=== PATIENT | female | born 1970 | race Caucasian/White ===

== ENCOUNTER 2024-01-09 07:57 | Day surgery (SDC) | payer OTHER, SELFPAY ==
[2024-01-01 10:23] VITALS: BMI 50.9
[2024-01-01 10:50] LABS: % Basophils 0.4 % (0-2); % Eosinophils 0.9 % (0-6); % Immature Granulocytes 0.4 % (0-0.5); % Lymphocytes 30.5 % (20.5-51.1); % Monocytes 4.9 % (1.7-9.3); % Neutrophils 62.9 % (42.2-75.2); Absolute Eosinophils 0.1 10^3/uL (0-0.7); Absolute Lymphocytes 2.3 10^3/uL (1.2-3.4); Absolute Monocytes 0.4 10^3/uL (0.1-0.6); Absolute Neutrophils 4.8 10^3/uL (1.4-6.5); Hematocrit 40.9 % (37.0-47.0); Mean Corp Hgb Conc. 34.2 g/dL (33.0-37.0); Mean Corpuscular Hgb 29.5 pg (27.0-31.0); Mean Corpuscular Volume 86.3 fL (81.0-99.0); Mean Platelet Volume 9.8 fL (7.4-10.4); Nucleated Red Blood Cells % 0 %; Platelet Count 372 10^3/uL (130-400); Red Blood Cell Count 4.74 10^6/uL (4.20-5.40); Red Cell Dist. Width 12.3 % (11.5-14.5); White Blood Cell Count 7.7 10^3/uL (4.8-10.8)
[2024-01-01 11:01] LABS: ALT (SGPT) 25 U/L (0-35); AST (SGOT) 20 U/L (14-36); Albumin 4.6 g/dl (3.5-5.0); Alkaline Phosphatase 108 U/L (38-126); Blood Urea Nitrogen 16 mg/dl (7-17); Calcium 9.7 mg/dl (8.4-10.2); Carbon Dioxide 27 mmol/L (22-30); Chloride 103 mmol/L (98-107); Estimated Creatinine Clearance 122 ml/min; Glucose 106 mg/dl (70-99); Magnesium 2.2 mg/dl (1.6-2.3); Potassium 4.6 mmol/L (3.5-5.1); Sodium 140 mmol/L (135-145); Total Bilirubin 0.9 mg/dl (0.2-1.3); Total Protein 7.1 g/dl (6.3-8.2); eGFR > 60.00
[2024-01-01 11:27] LABS: INR 1.07; PT 13.7 Sec (11.4-14.6)
[2024-01-09] VITALS (23 sets, daily range): BP systolic 98–122; BP diastolic 60–77; BMI 50.9
[2024-01-09 12:20] LABS: ACT-LR - POC 277 Seconds (116-155)
[2024-01-09 12:43] LABS: ACT-LR - POC 289 Seconds (116-155)
--- NOTE | 2024-01-09 14:08 | ITS.CL.ABL ---
Physical Medicine Teacher - Ablation
Ablation
Procedure Report:
ELECTROPHYSIOLOGY ABLATION STUDY
�
DATE:: January 09, 2024�����������������������������REFERRING: Dr. Silas Daigle
�
INDICATION: Persistent supraventricular tachycardia in the form of atrial fibrillation.� Prior pulmonary vein isolation with a 20 mm cryoballoon in 2019
�
HISTORY: See H and P.��As above
�
ANTIARRHYTHMIC DRUG: Amiodarone
�
PRE-PROCEDURE JULIÁN: No atrial thrombus
�
PRESENTING RHYTHM: A-fib
�
'TIME-OUT':��called and confirmed.
�
SEDATION/ANESTHESIA:��provided via the anesthesia department using general anesthesia (LMA).
�
INTRAVENOUS/ARTERIAL ACCESS:
Right femoral venous - 8Fr
Left femoral venous -9 Hungarian
The right pulmonary vein we utilized a [id number] stitch and a Vascade suture closure was utilized for the 9 Hungarian sheath in the left femoral vein.
Ultrasound guidance for bilateral femoral vein access was utilized by me to obtain access with demonstration of normal anatomy
CHADS-VASC Score:
�
HAS-Bled Score
�
PROCEDURE:
1.��A decapolar CS catheter was placed within the CS for mapping and pacing.��This was also used as the reference catheter for the 3-D map.
�
2. The intracardiac ultrasound catheter was positioned in the RA to identify the FO for targeting of transseptal puncture, assist��in identification of the pulmonary vein ostia, monitoring pre and post ablation pulmonary vein flow velocities,
monitoring for 'bubble' formation during RF application as a sign of thermal injury,��and to monitor for pericardial effusion during mapping and ablation procedure.���Left atrial size, LV ejection fraction, and pulmonary vein flows were monitored
pre and post ablation procedure. The other valves were inspected and found to be free of significant regurgitation or stenosis.
�
3.��Half of the calculated heparin bolus was administered prior to the first transeptal puncture.��Transseptal puncture was performed to diagnose RA and LA pressure so that safety of LA mapping and ablation could be further assessed, and to access
the left atrium and pulmonary veins for mapping and ablation.��This entailed advancing an 14 Hungarian Contour with dilator and needle apparatus into the superior vena cava and withdrawing both (monitoring intracardiac ultrasound, fluoroscopy and tip
pressure) with the tip oriented toward the atrial septum.��The fossa ovalis was engaged (indicated by sudden displacement of the sheath tip as well as tenting of the fossa seen on intracardiac ultrasound).��Left atrial access required a pass with
the Brockenbrough needle extended.��Left atrial catheter position was confirmed by pressure monitoring (RA mean pressure 8 mm Hg and LA mean presure 14 mm Hg), LA saturation (99%),��as well as fluoroscopy.��The sheath was advanced over the dilator
and positioned in the left atrium.���The remainder of the calculated heparin bolus was administered and heparin was
infused to maintain ACT at 300 -350 seconds throughout the case.
�
4.��RA pacing was performed via the proximal decapolar poles and LA pacing was performed via the distal decapolr poles.
�
5. A quadrapolar catheter was first positioned at the His position for His Bundle recording which was tagged via the 3-D Navex sytem, and then passed to the RVA for RV pacing and recording.
�
6. The multipolar catheter and the PFA catheter were placed in each of the LIPV, LSPV, RSPV and the RIPV.��
�
7.��Next, a 3-D map was created using Navex.���A 3-D reconstructed CT image was compared to the 3-D Navex map to assist in anatomic interpretation, mapping and ablation.��The CT image and the NavX image were fused.
�
8. 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 The right superior, right inferior and lesser pulmonary veins were isolated at baseline and antral fashion. The patient was in atrial
fibrillation during mapping. A total of 82 lesions were given to the pulmonary veins with particular attention to the posterior aspect of the left inferior pulmonary vein as well as isolation of the left atrial posterior wall from roof to floor
with entrance block achieved in all 4 pulmonary veins and the left atrial posterior wall. Upon withdrawal of the PFA catheter the distal tip was somewhat deformed and the sheath and ablation catheter removed back to the right atrium under direct
fluoroscopic guidance and withdrawn from the body under direct fluoroscopic guidance without incident. The patient received 1 300 J synchronized biphasic shock which restored sinus rhythm and there was no other nonpulmonary vein triggers for atrial
fibrillation noted.
�
9. The ICD therapies were turned off for the initial part of the procedure and back on at the end of procedure. Programming was AAI�DDD 50 to 130 bpm and VF zone at 200 bpm with a monitor from 150 to 199 bpm.
�
TOTAL FLOURO TIME: 16.7 minutes 493 mGy
�
TOTAL RF DURATION: 0 minutes
�
REVERSAL OF HEPARIN: 50 mg of protamine, slow IV administration
�
COMPLICATIONS:
None
Intracardiac US shows no pericardial effusion post ablation.
�
SUMMARY:��
Complex left atrial mapping and ablation.
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 Reisolation of left inferior pulmonary vein and the left atrial posterior wall with PFA with a total of 82 lesions noted.
�
RECOMMENDATIONS:
1. Admit to monitored bed.
2. Resume anticoagulation
3.� Out of bed 4 hours. Counseled patient on weight loss and sleep apnea therapy. Could consider outpatient therapy with Wegovy or Ozempic.
4.� Amiodarone 100 mg daily x 3 months then discontinue
�
Copy to: Dr. Silas Daigle
�
--- NOTE | 2024-01-09 15:19 | PTCARENOTE ---
Addendum entered by Deanna Norman RN 01/09/24 15:23:
NSR is noted on the monitor.
Original Note:
Received the patient from the label fuser tender in her bed. The patient is aaox3, vital signs are stable, 99% on 2L. Her BL groin site dressings are c/d/i. Both sites are soft with positive pedal pulses noted BL. She has no complaints of pain. I oriented her
to her room. I instructed her on her activity restrictions and expected oob time. Her call nelson is within reach.
--- NOTE | 2024-01-09 16:09 | CM ---
Chart reviewed. Patient is independent of ADLS, lives with her significant other in a 1 [address], ramp access, 0 DME. Gave patient Advance Directive. Plan is for the patient to return home. CM to follow
--- NOTE | 2024-01-09 18:00 | PTCARENOTE ---
I removed the patient's suture from her right groin at 1700. At 1730, the dressing was c/d/i and I attempted to sit the patient up in her bed. Immediately upon sitting up, her right groin dressing was saturated and blood began to leak all over her
groin area. I laid her bank down in her bed and applied pressure to her groin for 20 minutes. I cleaned her up afterward, applied a hemostasis pad, a 4x4 folded gauze, and a Tegaderm dressing to her right groin. I instructed the patient to remain
flat in her bed for another hour. Will hold off giving her her 1800 Xarelto until hemostasis is established.
[2024-01-09] MEDS: LASIX 20 MG PO (19:47)
[2024-01-09] MEDS: TOPROL XL 100 MG PO (19:47)
[2024-01-09] MEDS: ZESTRIL 10 MG PO (19:47)
--- NOTE | 2024-01-09 20:34 | PTCARENOTE ---
Received patient at change of shift. Patient awake, alert, and oriented in bed. Patient remaining on bed rest due to bleeding when sitting up with day shift RN. Both groin site clean, dry, and intact; soft, no hematoma. Significant other at bedside.
BP 99/71, HR 67, 93% on room air. Discussed gradually increases HOB to reduce bleeding risk with patient. Patient verbalized understanding. Call nelson within reach.
[2024-01-09] MEDS: XARELTO 20 MG PO (22:10)
[2024-01-09] MEDS: BUSPAR 10 MG PO (22:11)
[2024-01-10 03:21] VITALS: BP 93/61
[2024-01-10 03:22] VITALS: BP 93/61
[2024-01-10 03:43] LABS: Hematocrit 34.7 % (37.0-47.0); Hemoglobin 12.2 g/dL (12.0-16.0); Mean Corp Hgb Conc. 35.2 g/dL (33.0-37.0); Mean Corpuscular Hgb 29.5 pg (27.0-31.0); Mean Corpuscular Volume 83.8 fL (81.0-99.0); Mean Platelet Volume 9.5 fL (7.4-10.4); Platelet Count 296 10^3/uL (130-400); Red Blood Cell Count 4.14 10^6/uL (4.20-5.40); Red Cell Dist. Width 12.3 % (11.5-14.5); White Blood Cell Count 12.5 10^3/uL (4.8-10.8)
--- NOTE | 2024-01-10 03:55 | PTCARENOTE ---
Right and left groin sites clean, dry, and intact. Soft, no hematoma. Patient is off bedrest and has ambulated to the bathroom two times. Patient is steady on feet and feels good moving. Vital signs are stable. Discussed calling RN with any pain or
discomfort. Call nelson within reach.
[2024-01-10 04:07] LABS: Blood Urea Nitrogen 22 mg/dl (7-17); Calcium 9.1 mg/dl (8.4-10.2); Carbon Dioxide 22 mmol/L (22-30); Chloride 104 mmol/L (98-107); Estimated Creatinine Clearance 109 ml/min; Glucose 153 mg/dl (70-99); Potassium 4.5 mmol/L (3.5-5.1); Sodium 139 mmol/L (135-145); eGFR > 60.00
[2024-01-10 07:48] VITALS: BP 102/65
[2024-01-10] MEDS: ALDACTONE 25 MG PO (08:14)
[2024-01-10] MEDS: PACERONE 100 MG PO (08:14)
[2024-01-10] MEDS: ZESTRIL 10 MG PO (08:14)
[2024-01-10] MEDS: NORVASC 10 MG PO (08:14)
[2024-01-10] MEDS: LASIX 20 MG PO (08:15)
[2024-01-10] MEDS: TOPROL XL 100 MG PO (08:15)
--- NOTE | 2024-01-10 08:57 | PTCARENOTE ---
Assumed care of pt from night RN. Pt received awake and alert, Ox3. VSs, CM shows NSR 60's, POX 96% on RA. Bilateral groins remain CDI with normal CMS. Pt denies any pain or discomfort at this time.
--- NOTE | 2024-01-10 09:37 | W.PN.CARDCBS ---
Addendum entered and electronically signed by Kalyan Colin MD 01/10/24 13:40:
Patient seen and examined
Agree with RABBIT DRESSER note and assessment
Agree with RABBIT DRESSER plan
Examination:
Right groin is clean dry and intact
Hemoglobin is noted
Cors regular without murmur
Telemetry demonstrates sinus rhythm
Remainder of examination per RABBIT DRESSER note
Impression:
Symptomatic Afib prior PVI 2019
post redo PVI 01/09/24
VT arrest 2018 post ICD
AMIE/CPAP
HTN
Benign Meningioma excision 2019
Anxiety
Morbid obesity BMI 50
SUMMARY:��
Complex left atrial mapping and ablation.
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 Reisolation of left inferior pulmonary vein and the left atrial posterior wall with PFA with a total of 82 lesions noted.
Plan:
post ablation feels good
groins stable
tele SR no ectopy
continue OAC Xarelto
Decrease Amiodarone to 100mg daily for 3 mo, then stop
Activity restrictions reviewed
reinforced compliance with CPAP and wt loss plan to start GLP1
Activity restrictions reviewed
f/u Dr. Daigle 3 mo
home today
Original Note:
Today's Communication / Plan
-
stable for d/c home
Impression / Plan
-
PCP: Dr. Buchanan
CDY: Dr. Daigle
Impression:
Symptomatic Afib prior PVI 2019
post redo PVI 01/09/24
VT arrest 2018 post ICD
AMIE/CPAP
HTN
Benign Meningioma excision 2019
Anxiety
Morbid obesity BMI 50
SUMMARY:��
Complex left atrial mapping and ablation.
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 Reisolation of left inferior pulmonary vein and the left atrial posterior wall with PFA with a total of 82 lesions noted.
Plan:
post ablation feels good
groins stable
tele SR no ectopy
continue OAC Xarelto
Decrease Amiodarone to 100mg daily for 3 mo, then stop
Activity restrictions reviewed
reinforced compliance with CPAP and wt loss plan to start GLP1
Activity restrictions reviewed
f/u Dr. Daigle 3 mo
home today
�
Progress Note - Manufacturing Software Engineer
Subjective
Date of Service: January 10, 2024
denies cp, sob
Objective
Labs:
01/10/24 03:31
01/10/24 03:31
Labs
Hgb 12.2 g/dL (12.0-16.0) 01/10/24 03:31
Hct 34.7 % (37.0-47.0) L 01/10/24 03:31
Plt Count 296 10^3/uL (130-400) 01/10/24 03:31
PT 13.7 Sec (11.4-14.6) 01/01/24 10:35
INR 1.07 01/01/24 10:35
Sodium 139 mmol/L (135-145) 01/10/24 03:31
Potassium 4.5 mmol/L (3.5-5.1) 01/10/24 03:31
BUN 22 mg/dl (7-17) H 01/10/24 03:31
Creatinine 0.9 mg/dL (0.6-1.0) 01/10/24 03:31
Glucose 153 mg/dl (70-99) H 01/10/24 03:31
Vital Signs and I&O:
Vital Signs
Temp Pulse Resp BP Pulse Ox
97.7 F 70 18 102/65 96
01/10/24 07:50 01/10/24 08:00 01/10/24 07:50 01/10/24 07:48 01/10/24 08:50
Vital Signs
Temp Pulse Resp BP Pulse Ox
97.7 F 70 18 102/65 96
01/10/24 07:50 01/10/24 08:00 01/10/24 07:50 01/10/24 07:48 01/10/24 08:50
Intake & Output
01/08/24 01/09/24 01/10/24 01/11/24
06:59 06:59 06:59 06:59
Intake Total 1200 / 1200
Balance 1200 / 1200
Physical Exam
Physical Exam
NAD< AOX3
S1, S2, RRR
CTAB< non labored
SNTND Bsx4
b/l groins c/d/i no HT, soft
[2024-01-10] MEDS: AFLURIA (36 mos+) 2024-2025 FORMULA 0.5 ML IM (10:01)
--- NOTE | 2024-01-10 10:22 | PTCARENOTE ---
All D/C infor reviewed with pt all questions answered. Flu shot administered as ordered. Pt D/C'd with spouse.
--- NOTE | 2024-01-10 12:31 | W.DS.TRANS ---
DC Summary - Mobile Home Technician
-
Discharge Instructions:
Discharge Diagnosis/Procedures AFib post ablation
Diet Low Cholesterol
Driving Restrictions No driving for 24 hours
Instructions:
Stand-Alone Forms: DC Instructions- Cath/EP Lab
Changes to Home Medications: Yes
Discharge Medications:
DC Medications w/original date entered in [employer]
amlodipine 10 mg tablet 10 mg PO DAILY 09/25/17
rivaroxaban 20 mg tablet (Xarelto) 20 mg PO QPM #30 tabs 09/27/17
lisinopril 10 mg tablet 10 mg PO BID 10/09/17
furosemide 20 mg tablet 20 mg PO BID 12/06/18
spironolactone 25 mg tablet 25 mg PO DAILY 12/06/18
metoprolol succinate 100 mg tablet,extended release 24 hr 100 mg PO BID #180 tabs 12/11/18
buspirone 10 mg tablet 10 mg PO QPM 12/28/23
acetaminophen 500 mg capsule 1,000 mg PO Q6H PRN pain 01/09/24
lorazepam 1 mg tablet 1 mg PO DAILY PRN anxiety 01/09/24
amiodarone 200 mg tablet 100 mg (1/2 x 200 mg) PO QPM #0 tabs 01/10/24
Home Medication Changes
decrease amio to 100mg daily
Pending Results: No
== END 2024-01-10 10:20 | disposition home or self-care (01) ==
LOC: CATH 07:57
PROVIDERS: Nurse Practitioner Adult Health; ATTENDING PHYSICIAN Internal Medicine Cardiovascular Disease; FAMILY PHYSICIAN Family Medicine; REFERRING PHYSICIAN Internal Medicine Cardiovascular Disease
DX: I48.19 Other persistent atrial fibrillation (principal); I47.10 Supraventricular tachycardia, unspecified; I10 Essential (primary) hypertension; E66.01 Morbid (severe) obesity due to excess calories; Z68.43 Body mass index [BMI] 50.0-59.9, adult; G47.33 Obstructive sleep apnea (adult) (pediatric); Z95.810 Presence of automatic (implantable) cardiac defibrillator; Z79.01 Long term (current) use of anticoagulants
CPT/HCPCS: C1732; C1894; C1730; C1733; C1769; C1892; C1759; 36415; 80048; 80053; 83735; 85025; 85027; 85347; 85610; 86850; 86900; 86901; 90686; 93005; 93656; 93657; C1760; G0008